=== PATIENT | male | born 1960 | race Caucasian/White ===

== ENCOUNTER → 2019-05-12 | Outpatient (CLI) | payer BC, SELFPAY ==
[2015-05-01 08:24] VITALS: BMI 37.6
[2019-05-12 11:01] LABS: International Normalized Ratio 2.6; Prothrombin Time (Protime)PT. 27.5 SECONDS (11.7-14.9)
== END | disposition home or self-care (01) ==
LOC: LABSPEC 10:44
PROVIDERS: Family Provider Family Medicine; PCP Family Medicine; Referring Provider Family Medicine; Visit Provider Family Medicine
DX: Z86.718 Personal history of other venous thrombosis and embolism (principal)
CPT/HCPCS: 36415; 85610

== ENCOUNTER → 2020-04-03 | Outpatient (CLI) | payer BC, SELFPAY ==
[2020-04-03 11:09] LABS: International Normalized Ratio 1.2; Prothrombin Time (Protime)PT. 14.7 SECONDS (11.7-14.9)
== END | disposition home or self-care (01) ==
LOC: LABSPEC 10:51
PROVIDERS: PCP Family Medicine; Referring Provider Family Medicine; Visit Provider Family Medicine
DX: Z86.718 Personal history of other venous thrombosis and embolism (principal)
CPT/HCPCS: 85610

== ENCOUNTER → 2020-04-08 | Outpatient (CLI) | payer BC, SELFPAY ==
[2020-04-08 12:37] LABS: International Normalized Ratio 1.8; Prothrombin Time (Protime)PT. 20.5 SECONDS (11.7-14.9)
== END | disposition home or self-care (01) ==
LOC: LABSPEC 08:46
PROVIDERS: PCP Family Medicine; Referring Provider Family Medicine; Visit Provider Family Medicine
DX: Z79.01 Long term (current) use of anticoagulants (principal); Z86.718 Personal history of other venous thrombosis and embolism
CPT/HCPCS: 85610

== ENCOUNTER → 2020-04-22 | Outpatient (CLI) | payer BC, SELFPAY ==
[2015-05-01 08:24] VITALS: BMI 37.6
[2020-04-22 10:23] LABS: International Normalized Ratio 3.4
== END | disposition home or self-care (01) ==
LOC: LABSPEC 10:06
PROVIDERS: PCP Family Medicine; Referring Provider Family Medicine; Visit Provider Family Medicine
DX: Z86.718 Personal history of other venous thrombosis and embolism (principal)
CPT/HCPCS: 85610

== ENCOUNTER → 2020-04-29 12:27 | Outpatient (CLI) | payer BC, SELFPAY ==
[2015-05-01 08:24] VITALS: BMI 37.6
[2020-04-29 12:58] LABS: International Normalized Ratio 2.7; Prothrombin Time (Protime)PT. 28.1 SECONDS (11.7-14.9)
== END ==
PROVIDERS: PCP Family Medicine; Referring Provider Family Medicine; Visit Provider Family Medicine
DX: Z86.718 Personal history of other venous thrombosis and embolism (principal)
CPT/HCPCS: 85610

== ENCOUNTER → 2020-07-04 08:39 | Outpatient (CLI) | payer BC, SELFPAY ==
[2015-05-01 08:24] VITALS: BMI 37.6
[2020-07-04 09:08] LABS: International Normalized Ratio 2.1; Prothrombin Time (Protime)PT. 22.7 SECONDS (11.7-14.9)
== END | disposition home or self-care (01) ==
LOC: LABSPEC 08:41
PROVIDERS: PCP Family Medicine; Visit Provider Family Medicine
CPT/HCPCS: 85610

== ENCOUNTER → 2020-08-07 17:39 | Outpatient (CLI) | payer BC, SELFPAY | PROVIDERS: PCP Family Medicine; Referring Provider Family Medicine; Visit Provider Family Medicine | DX: U07.1 COVID-19 (principal) | CPT/HCPCS: 87635; C9803; U0003 ==

== ENCOUNTER → 2020-09-12 | Outpatient (CLI) | payer BC, SELFPAY ==
[2015-05-01 08:24] VITALS: BMI 37.6
[2020-09-12 09:02] LABS: International Normalized Ratio 2.4; Prothrombin Time (Protime)PT. 25.8 SECONDS (11.7-14.9)
== END | disposition home or self-care (01) ==
LOC: LABSPEC 08:33
PROVIDERS: PCP Family Medicine; Visit Provider Family Medicine
DX: Z86.718 Personal history of other venous thrombosis and embolism (principal)
CPT/HCPCS: 85610

== ENCOUNTER → 2020-10-17 | Outpatient (CLI) | payer BC, SELFPAY ==
[2015-05-01 08:24] VITALS: BMI 37.6
[2020-10-17 10:29] LABS: Prothrombin Time (Protime)PT. 22.6 SECONDS (11.7-14.9)
== END | disposition home or self-care (01) ==
LOC: LABSPEC 10:06
PROVIDERS: PCP Family Medicine; Referring Provider Family Medicine; Visit Provider Family Medicine
DX: Z86.718 Personal history of other venous thrombosis and embolism (principal)
CPT/HCPCS: 85610

== ENCOUNTER → 2020-11-19 | Outpatient (CLI) | payer BC, SELFPAY ==
[2020-11-19 10:25] LABS: International Normalized Ratio 2.7; Prothrombin Time (Protime)PT. 28.4 SECONDS (11.7-14.9)
== END | disposition home or self-care (01) ==
LOC: LABSPEC 10:07
PROVIDERS: PCP Family Medicine; Referring Provider Family Medicine; Visit Provider Family Medicine
DX: Z86.718 Personal history of other venous thrombosis and embolism (principal)
CPT/HCPCS: 85610

== ENCOUNTER → 2021-01-23 | Outpatient (CLI) | payer BC, SELFPAY ==
[2021-01-23 09:39] LABS: International Normalized Ratio 2.6; Prothrombin Time (Protime)PT. 26.6 SECONDS (11.7-14.9)
== END | disposition home or self-care (01) ==
LOC: LABSPEC 09:22
PROVIDERS: PCP Family Medicine; Referring Provider Family Medicine; Visit Provider Family Medicine
DX: Z86.718 Personal history of other venous thrombosis and embolism (principal)
CPT/HCPCS: 85610

== ENCOUNTER → 2021-02-24 08:34 | Outpatient (CLI) | payer BC, SELFPAY ==
[2021-02-24 09:33] LABS: International Normalized Ratio 2.8
== END ==
PROVIDERS: PCP Family Medicine; Referring Provider Family Medicine; Visit Provider Family Medicine
DX: Z86.718 Personal history of other venous thrombosis and embolism (principal)
CPT/HCPCS: 85610

== ENCOUNTER → 2023-04-22 | Outpatient (CLI) | payer OTHER, SELFPAY ==
[2023-04-22 16:59] LABS: International Normalized Ratio 2.7; Prothrombin Time (Protime)PT. 29.1 SECONDS (11.7-14.9)
== END | disposition home or self-care (01) ==
PROVIDERS: PCP Internal Medicine; Referring Provider Physician Assistant; Visit Provider Physician Assistant
DX: Z79.01 Long term (current) use of anticoagulants (principal)
CPT/HCPCS: 85610

== ENCOUNTER 2023-05-27 15:00 | Emergency (ER) | payer OTHER, SELFPAY ==
[2023-05-27 15:01] VITALS: BP 147/59; PULSE 60; RESP 15; TEMP 36.4; O2SAT 97; BMI 38.7
--- NOTE | 2023-05-27 17:31 | RAD_ITS ---
INDICATION: Trauma EXAMINATION/TECHNIQUE: X-RAY - LEFT XR Shoulder Min 2 Views 4 VIEWS COMPARISON: FINDINGS: No acute fracture or dislocation. No destructive bone changes. Joint spaces are well-maintained. Normal alignment. Soft tissues are unremarkable. No radiopaque foreign body or soft tissue gas. RAD/Shoulder min 2 Views IMPRESSION: Negative. Electronically Signed: Yojana Mahmood MD at 18:54 EDT Reading Location ID and State: [id number] / Tel , Service support ,
--- NOTE | 2023-05-27 17:31 | CT_ITS ---
STUDY: CT BRAIN WITHOUT CONTRAST REASON FOR EXAM: Male, 63 years old. Trauma RADIATION DOSAGE (If Supplied By Facility): CTDIvol = ( 44.99 ) mGy, DLP = ( 931.09 ) mGycm TECHNIQUE: Transaxial CT imaging of the brain was performed without administration of intravenous contrast material. Individualized dose optimization techniques were used for this CT. COMPARISON: FINDINGS: Normal soft tissue structures. Normal calvarium. There is mild cerebral atrophy with widening of the extra-axial spaces and ventricular dilatation. There are areas of decreased attenuation within the white matter tracts of the supratentorial brain, consistent with microvascular disease changes. There is no intracranial hemorrhage. There are no findings of an acute ischemic infarction. Normal visualized paranasal sinuses. CT/Brain/Head without Contrast IMPRESSION: No acute findings. Microvascular ischemic changes. Atrophy. Electronically Signed: Yojana Mahmood MD at 18:12 EDT Reading Location ID and State: [id number] / Tel , Service support ,
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
--- NOTE | 2023-05-27 17:45 | CT_ITS ---
INDICATION: Trauma EXAMINATION: CT CERVICAL SPINE - CT Spine Cervical W/O Contrast Injection TECHNIQUE: Helically acquired images were obtained of the cervical spine. 2D reformatted images were reviewed. A radiation dose optimization technique was used for this scan. IV Contrast dosage and agent: None. RADIATION DOSAGE (If Supplied By Facility): CTDIvol = ( 31.05 ) mGy, DLP = ( 707.68 ) mGycm COMPARISON: FINDINGS: VERTEBRAE: No fracture or traumatic subluxation. No discrete lytic or blastic abnormality. Normal alignment. Normal craniocervical junction and cervicothoracic junction. DISCS and SPINAL CANAL: Disc heights are preserved. No critical stenosis. C4-5 left foraminal encroachment due to uncinate hypertrophy. NECK SOFT TISSUES: No prevertebral soft tissue swelling. There is no cervical adenopathy. Large multinodular thyroid, partially imaged. LUNG APICES: Clear. CT/Spine Cervical without Contras IMPRESSION: No acute cervical trauma. Electronically Signed: Yojana Mahmood MD at 18:26 EDT Reading Location ID and State: [id number] / Tel , Service support ,
--- NOTE | 2023-05-27 17:55 | RAD_ITS ---
INDICATION: Trauma EXAMINATION/TECHNIQUE: X-RAY - XR Ribs Unilateral W/ PA Chest Min 3 Views COMPARISON: FINDINGS: SOFT TISSUES: No soft tissue swelling or gas. BONES: No displaced fracture. No sclerotic or destructive changes observed. VISUALIZED LUNGS: Clear. No pneumothorax. RAD/Ribs Uni Min 3V w/PA Chest IMPRESSION: No evidence of displaced rib fracture. Electronically Signed: Yojana Mahmood MD at 18:56 EDT Reading Location ID and State: [id number] / Tel , Service support ,
[2023-05-27 19:01] VITALS: BP 139/79; PULSE 82; RESP 16; O2SAT 96
[2023-05-27 19:32] LABS: International Normalized Ratio 2.3; Prothrombin Time (Protime)PT. 25.8 SECONDS (11.7-14.9)
== END 2023-05-27 20:12 | disposition home or self-care (01) ==
PROVIDERS: Emergency Provider Emergency Medicine; PCP Internal Medicine; Visit Provider Emergency Medicine
DX: S16.1XXA Strain of muscle, fascia and tendon at neck level, initial encounter (principal); S29.009A Unspecified injury of muscle and tendon of unspecified wall of thorax, initial encounter; S40.012A Contusion of left shoulder, initial encounter; V84.0XXA Driver of special agricultural vehicle injured in traffic accident, initial encounter; Y92.410 Unspecified street and highway as the place of occurrence of the external cause
CPT/HCPCS: 70450; 71101; 72125; 73030; 85610; 99282

== ENCOUNTER → 2023-12-24 | Outpatient (CLI) | payer OTHER, SELFPAY ==
--- NOTE | 2023-12-24 10:48 | ECHOD_ITS ---
Reason For Study: SOB Procedure This was a 2D Doppler, Color Flow transthoracic echocardiogram. The study was technically difficult. Definity declined. Exam performed in department. Left Ventricle Normal LV size. Mild concentric left ventricular hypertrophy. The left ventricular ejection fraction is 65 %. No evidence for diastolic dysfunction. Septal motion consistent with bundle branch block. Right Ventricle Normal right ventricle. Atria The left and right atria are normal. Mitral Valve Mild mitral annular calcification. Tricuspid Valve Trivial tricuspid valve insufficiency. Unable to estimate RV systolic pressure due to insufficient tricuspid regurgitant envelope. Aortic Valve Trisinus/trileaflet aortic valve. Pulmonic Valve The pulmonic valve is not well visualized. Great Vessels Normal sized aortic root. Pericardium/Pleural No pericardial effusion. MMode/2D Measurements & Calculations LVIDd: 6.2 cm IVSd: 1.0 cm Ao root diam: 3.3 cm LVIDs: 5.4 cm LVPWd: 1.2 cm FS: 13.6 % LAV(MOD-bp): 63.4 ml LVAd ap4: 41.7 cm2 SV(MOD-sp4): 85.7 ml LAV(MOD-bp) Indexed: 27.2 ml/m2 LVLd ap4: 8.9 cm LAV(MOD-sp2): 68.7 ml EDV(MOD-sp4): 168.3 ml LAV(MOD-sp4): 54.3 ml EDV(sp4-el): 165.4 ml LVAs ap4: 25.9 cm2 LVLs ap4: 7.2 cm ESV(MOD-sp4): 82.6 ml ESV(sp4-el): 79.2 ml EF(MOD-sp4): 50.9 % EF(sp4-el): 52.2 % SV(sp4-el): 86.3 ml LA A4 area: 18.9 cm2 RA A4 area: 21.0 cm2 TAPSE: 2.4 cm Time Measurements MV dec time: 0.26 sec Doppler Measurements & Calculations MV E max arjun: 71.7 cm/sec Lat Peak E' Arjun: 12.7 cm/sec Med Peak E' Arjun: 9.0 cm/sec MV A max arjun: 75.1 cm/sec E/E' lat: 5.7 E/E' med: 8.0 MV E/A: 0.95 MV V2 max: 88.3 cm/sec MV dec slope: 282.8 cm/sec2 Ao V2 max: 135.3 cm/sec MV max P.1 mmHg Ao max P.3 mmHg MV V2 mean: 50.0 cm/sec Ao V2 mean: 85.6 cm/sec MV mean P.2 mmHg Ao mean P.5 mmHg MV V2 VTI: 41.1 cm Ao V2 VTI: 29.6 cm AV (velocity ratio): 0.94 LV V1 max: 117.2 cm/sec PA V2 max: 108.8 cm/sec LV V1 max P.5 mmHg LV V1 mean P.0 mmHg LV V1 mean: 79.4 cm/sec LV V1 VTI: 27.8 cm ECHO/Echo Complete Interpretation Summary The study was technically difficult. Mild concentric left ventricular hypertrophy. The left ventricular ejection fraction is 65 %. Mild mitral annular calcification. Ordering Physician: Oseas Hernandez V Referring Physician: Oseas Hernandez V Performed By: Leana Valdes RCS
== END | disposition home or self-care (01) ==
LOC: CVS 10:47
PROVIDERS: PCP Internal Medicine; Referring Provider Internal Medicine Pulmonary Disease; Visit Provider Internal Medicine Pulmonary Disease
DX: I10 Essential (primary) hypertension (principal); R06.02 Shortness of breath
CPT/HCPCS: 93306

== ENCOUNTER 2024-10-06 17:40 | Emergency (ER) | payer BC, SELFPAY ==
[2024-10-06 17:41] VITALS: BP 133/72; PULSE 44; RESP 18; TEMP 37.2; O2SAT 99; BMI 37.5
--- NOTE | 2024-10-06 17:49 | RAD_ITS ---
EXAM: XR CHEST, 2 VIEWS CLINICAL INDICATION: cough TECHNIQUE: Frontal and lateral views of the chest. COMPARISON: 06/27/2014 FINDINGS: LUNGS AND PLEURAL SPACES: Unremarkable. No consolidation or edema. No pneumothorax. No effusion. HEART: Unremarkable. Cardiac silhouette not enlarged. MEDIASTINUM: Central airways and mediastinal contour are unremarkable. BONES/JOINTS: Unremarkable. No acute fracture. SOFT TISSUES: Unremarkable. RAD/Chest PA and Lateral IMPRESSION: No radiographic evidence of acute cardiopulmonary disease. Electronically Signed: Ron Isabel MD at 18:13 EST ,
--- NOTE | 2024-10-06 17:58 | ED.RN ---
Patient transported to radiology
--- NOTE | 2024-10-06 18:00 | EDS_ITS ---
HPI <DAWNA Pittman - Last Filed: 10/06/24 20:59> History of Present Illness Chief Complaint: Chest Pain Narrative Narrative: 64-year-old male with PMH of HTN, HLD, DM2, DVT on Coumadin presents with several days of intermittent headache and midsternal chest tightness. He also had a slight cough. He was seen at urgent care 2 days ago and had a send out COVID/flu/RSV test. He states they called him today and said his swab was negative and that if he is still experiencing chest pain to be seen in the ED. Patient has had intermittent chest tightness lasting about 15 minutes several times throughout the day. It is mainly at rest and feels better if he stands up. He denies feeling short of breath. No nausea or vomiting or abdominal or back pain. He does not smoke. He has no personal cardiac history. He states his father had an IN at 61. PFSH <DAWNA Pittman - Last Filed: 10/06/24 20:59> [facility] Medical History Contact with and (suspected) exposure to other viral communicable diseases Home Medications ?Medication ?Instructions ?Recorded ?Last Taken ?Type Atenolol 25 mg PO DAILY 06/27/14 01/30/15 05:30 History 25 Metformin [Metformin Hcl] 1,000 mg PO BID 06/27/14 06/27/14 History lisinopril 20 1 tab PO DAILY 06/27/14 06/27/14 History mg-hydrochlorothiazide 12.5 mg tablet warfarin 4 mg tablet 4 mg PO SUTUWETHSA 06/27/14 06/27/14 History warfarin 5 mg tablet 5 mg PO MOFR 06/27/14 06/27/14 History aspirin 81 mg chewable tablet 81 mg PO DAILY@0800 01/29/15 Unknown History loratadine 10 mg tablet (Allergy 10 mg PO DAILY 01/29/15 Unknown History Relief (loratadine)) simvastatin 20 mg tablet 20 mg PO QHS 01/29/15 Unknown History Allergy/AdvReac Type Severity Reaction Status Date / Time No Known Allergies Allergy Verified 10/06/24 17:41 Social History Smoking Status: Never smoker ROS <DAWNA Pittman - Last Filed: 10/06/24 20:59> ROS ED ROS Narrative Constitutional: Negative for fever, chills, malaise. CVS: Positive for chest pain. Negative for palpitations,syncope. Respiratory: Positive for cough. Negative for shortness of breath, orthopnea. GI: Negative for abdominal pain, nausea, vomiting. EXAM <DAWNA Pittman - Last Filed: 10/06/24 20:59> Physical Exam Narrative Exam Narrative: CONST: Patient sitting in no acute distress. EYES: Normal inspection. NECK: Normal inspection. RESP: No respiratory distress, CTAB. CVS: Regular rate and rhythm, no murmur, no gallop. No chest wall tenderness. ABD: Soft and nontender, no guarding or rebound, nondistended, no hepatosplenomegaly. SKIN: Color normal, no rash, warm, dry, intact. EXTREMITIES: Normal appearance, no pedal edema. NEURO: Alert and answering questions appropriately. PSYCH: Normal affect. Const Vital Signs: 10/06/24 17:41 10/06/24 18:05 10/06/24 18:08 Temperature 98.9 F Temperature Source Oral Pulse Rate 44 L Respiratory Rate 18 Respiratory Effort Normal Blood Pressure 133/72 H Blood Pressure Mean 92 Pulse Ox 99 94 Oxygen Delivery Method Room Air Room Air 10/06/24 18:41 10/06/24 19:00 10/06/24 20:00 Temperature Temperature Source Pulse Rate 46 L 46 L 42 L Respiratory Rate 13 16 12 Respiratory Effort Blood Pressure Blood Pressure Mean Pulse Ox 94 94 97 Oxygen Delivery Method Room Air Room Air Room Air 10/06/24 20:53 Temperature 98.9 F Temperature Source Pulse Rate 42 L Respiratory Rate 12 Respiratory Effort Blood Pressure 133/72 H Blood Pressure Mean 92 Pulse Ox 97 Oxygen Delivery Method <Dr. Hill Lopez DO - Last Filed: 10/08/24 14:44> Physical Exam Const Vital Signs: 10/06/24 17:41 10/06/24 18:05 10/06/24 18:08 Temperature 98.9 F Temperature Source Oral Pulse Rate 44 L Respiratory Rate 18 Respiratory Effort Normal Blood Pressure 133/72 H Blood Pressure Mean 92 Pulse Ox 99 94 Oxygen Delivery Method Room Air Room Air 10/06/24 18:41 10/06/24 19:00 10/06/24 20:00 Temperature Temperature Source Pulse Rate 46 L 46 L 42 L Respiratory Rate 13 16 12 Respiratory Effort Blood Pressure Blood Pressure Mean Pulse Ox 94 94 97 Oxygen Delivery Method Room Air Room Air Room Air 10/06/24 20:53 Temperature 98.9 F Temperature Source Pulse Rate 42 L Respiratory Rate 12 Respiratory Effort Blood Pressure 133/72 H Blood Pressure Mean 92 Pulse Ox 97 Oxygen Delivery Method <DAWNA Pittman - Last Filed: 10/06/24 20:59> Heart Score History: Slightly/Non-Suspicious ECG: Normal Age: >45 - <65 years Risk Factors: >/= 3 Risk Factors or History of CAD Troponin: </= Normal Limit Score: 3 <Dr. Hill Lopez DO - Last Filed: 10/08/24 14:44> Heart Score Score: 3 MDM <DAWNA Pittman - Last Filed: 10/06/24 20:59> MDM MDM Narrative Medical decision making narrative: History gathered from: Patient and family member Differential includes viral illness, pneumonia, ACS 64-year-old male was evaluated for a few days of intermittent headache and midsternal chest tightness and slight cough. He appears well and nontoxic. He is hemodynamically stable. He is in sinus bradycardia from the mid 40s to 60s which is likely from his atenolol. He is not symptomatic. Overall his exam is unremarkable. CBC is WNL, BMP shows stable chronic kidney disease with creatinine of 1.39. Normal electrolytes. EKG is nonischemic and serial troponins are 6, 5. INR is therapeutic at 2.6 so I am not concerned for pulmonary embolus as the cause of his symptoms. Patient's pain is very atypical, his heart score is 3 and I do not suspect cardiac etiology. I feel he can be discharged and follow-up with his primary care doctor. Lab Data Attestation: I reviewed the patient's lab results. Labs: Laboratory Results - last 24 hr 10/06/24 10/06/24 18:20 20:21 WBC 7.3 RBC 4.59 L Hgb 13.1 Hct 40.7 MCV 88.7 MCH 28.5 MCHC 32.2 RDW Std Deviation 45.5 H RDW Coeff of Lisa 14.1 Plt Count 144 L MPV 10.2 Immature Gran % (Auto) 0.700 Neut % (Auto) 57.5 Lymph % (Auto) 27.0 [place] % (Auto) 9.7 Eos % (Auto) 4.1 Baso % (Auto) 1.0 Absolute Neuts (auto) 4.2 Absolute Lymphs (auto) 1.98 Nucleated RBC % 0 PT 28.7 H INR 2.6 Sodium 138 Potassium 4.3 Chloride 106 Carbon Dioxide 26.0 Anion Gap 6 BUN 38 H Creatinine 1.39 H Estim Creat Clear Calc 70.27 Est GFR (MDRD) Af Amer 66 Est GFR (MDRD) Non-Af 55 L BUN/Creatinine Ratio 27.3 H Glucose 111 H Calcium 9.7 Troponin I High Sens 6 5 Radiography Diagnostic Testing: Clinical Impression(s) from Imaging Studies Chest X-Ray 10/06/24 17:49 IMPRESSION: No radiographic evidence of acute cardiopulmonary disease. Electronically Signed: Ron Isabel MD at 18:13 EST , EKG Initial EKG: Attestation: I personally reviewed and interpreted this EKG as follows: Interpretation: No Acute Injury Pattern and Sinus Bradycardia Comments: Sinus bradycardia 45 bpm Normal intervals, no acute ischemic changes <Dr. Hill Lopez, DO - Last Filed: 10/08/24 14:44> [facility] MDM Narrative Medical decision making narrative: History gathered from: Patient and family member Differential includes viral illness, pneumonia, ACS 64-year-old male was evaluated for a few days of intermittent headache and midsternal chest tightness and slight cough. He appears well and nontoxic. He is hemodynamically stable. He is in sinus bradycardia from the mid 40s to 60s which is likely from his atenolol. He is not symptomatic. Overall his exam is unremarkable. CBC is WNL, BMP shows stable chronic kidney disease with creatinine of 1.39. Normal electrolytes. EKG is nonischemic and serial troponins are 6, 5. INR is therapeutic at 2.6 so I am not concerned for pulmonary embolus as the cause of his symptoms. Patient's pain is very atypical, his heart score is 3 and I do not suspect cardiac etiology. I feel he can be discharged and follow-up with his primary care doctor. Supervisory Physician Note Patient was seen and examined with the Advanced Practice Provider. Nursing notes and vital signs have been reviewed. Pertinent old records have been reviewed. I agree with the essential elements of the ESME's history, physical exam, assessment, and plan. The differential diagnosis and management options were discussed with the ESME. I participated in determining and agree with the management, procedures, final impression and disposition as documented. See changes noted by me. Please see addendum or separate note for any additional details. Lab Data Labs: Laboratory Results - last 24 hr 10/06/24 10/06/24 18:20 20:21 WBC 7.3 RBC 4.59 L Hgb 13.1 Hct 40.7 MCV 88.7 MCH 28.5 MCHC 32.2 RDW Std Deviation 45.5 H RDW Coeff of Lisa 14.1 Plt Count 144 L MPV 10.2 Immature Gran % (Auto) 0.700 Neut % (Auto) 57.5 Lymph % (Auto) 27.0 [place] % (Auto) 9.7 Eos % (Auto) 4.1 Baso % (Auto) 1.0 Absolute Neuts (auto) 4.2 Absolute Lymphs (auto) 1.98 Nucleated RBC % 0 PT 28.7 H INR 2.6 Sodium 138 Potassium 4.3 Chloride 106 Carbon Dioxide 26.0 Anion Gap 6 BUN 38 H Creatinine 1.39 H Estim Creat Clear Calc 70.27 Est GFR (MDRD) Af Amer 66 Est GFR (MDRD) Non-Af 55 L BUN/Creatinine Ratio 27.3 H Glucose 111 H Calcium 9.7 Troponin I High Sens 6 5 Radiography Diagnostic Testing: Clinical Impression(s) from Imaging Studies Chest X-Ray 10/06/24 17:49 IMPRESSION: No radiographic evidence of acute cardiopulmonary disease. Electronically Signed: Ron Isabel MD at 18:13 EST , Discharge Plan Triage Chief Complaint: Chest Pain Other Complaint: Headache ED Midlevel Provider: Jessika Duran ED Provider: Hill Lopez Dx/Rx/DC Orders Clinical Impression: Atypical chest pain, Sinus bradycardia Instructions: ED Chest Pain, Uncertain Cause Prescriptions: No Action Atenolol 25 MG tablet 25 mg PO DAILY Patient Comments: blood pressure/heart lisinopril-hydrochlorothiazide 1 EACH tablet 1 tab PO DAILY Patient Comments: blood pressure warfarin 4 MG tablet 4 mg PO SUTUWETHSA Patient Comments: 4MG , WED, TH, SAT, SUN warfarin 5 MG tablet 5 mg PO MOFR Patient Comments: 5MG ON WEDNESDAY AND WEDNESDAY Metformin [Metformin Hcl] 1,000 MG tablet 1,000 mg PO BID Patient Comments: diabetes simvastatin 20 MG tablet 20 mg PO QHS aspirin 81 MG tablet,chewable 81 mg PO DAILY@0800 loratadine [Allergy Relief (loratadine)] 10 MG tablet 10 mg PO DAILY Primary Care Provider: Kimberly Cat Referrals: Kimberly Cat MD [Primary Care Provider] - Activity Restrictions/Additional Instructions: Your screening tests today are normal. There are no signs of heart damage and this pain is unlikely to be heart related. Your INR is in the appropriate range at 2.6. I recommend you follow-up with your primary care doctor. Print Language: [place] Disposition Disposition: Home, Self Care Discharge Date/Time: 10/06/24 20:57
[2024-10-06] MEDS: Aspirin 81 MG TAB.CHEW 324 MG PO (18:04)
[2024-10-06 18:05] VITALS: O2SAT 94
[2024-10-06 18:27] LABS: Absolute Lymphocyte Count 1.98 X10^3/uL (0.83-4.51); Absolute Neutrophil Count 4.2 X10^3/uL (2.0-7.7); Basophil# 0.07 X10^3/uL; Eosinophils% 4.1 % (0-5); Hematocrit 40.7 % (40-54); Hemoglobin 13.1 g/dL (13.0-16.5); Lymphocyte # 1.98 X10^3/ul (0.83-4.51); Mean Corp Hgb Conc 32.2 g/dL (32-36); Mean Corpuscular Hgb 28.5 pg (27.0-32.0); Mean Corpuscular Volume 88.7 fL (80-94); Mean Platelet Vol. 10.2 fl (6.2-12.0); Monocyte# 0.71 X10^3/uL; Monocyte% 9.7 % (0-10); NRBC Flagged by Analyzer 0 % (0-5); Neutrophil # 4.23 X10^3/uL (2.7-7.7); Neutrophil % 57.5 % (47-70); Platelet Count 144 K/mm3 (150-450); RBC Distribution Width CV 14.1 % (11.6-14.6); RBC Distribution Width SD 45.5 fl (35.1-43.9); Red Blood Count 4.59 M/mm3 (4.6-6.2); White Blood Count 7.3 K/mm3 (4.4-11.0)
[2024-10-06 18:41] VITALS: PULSE 46; RESP 13; O2SAT 94
[2024-10-06 18:45] LABS: Anion Gap 6 (5-15); BUN 38 mg/dL (7-18); BUN/Creat Ratio 27.3 RATIO (10-20); Calcium,Total 9.7 mg/dL (8.5-10.1); Chloride 106 mmol/L (98-107); Creatinine, Serum 1.39 mg/dL (0.70-1.30); EST Glomerular Filtration Rate 55 mL/min (>60); Est Glom Filt Rate - Afr Amer 66 mL/min (>60); Estimated Creatinine Clearance 70.27 ml/min; Glucose 111 mg/dL (74-106); Potassium 4.3 mmol/L (3.5-5.1); Sodium Level 138 mmol/L (136-145); Troponin-I HS (w/2H Reflex) 6 pg/mL (3.0-78.0)
[2024-10-06 19:00] VITALS: PULSE 46; RESP 16; O2SAT 94
[2024-10-06 19:08] LABS: International Normalized Ratio 2.6; Prothrombin Time (Protime)PT. 28.7 SECONDS (11.7-14.9)
[2024-10-06 20:00] VITALS: PULSE 42; RESP 12; O2SAT 97
[2024-10-06 20:23] LABS: Reflex Troponin-HS? (from REC) Y
[2024-10-06 20:44] LABS: Troponin-I HS 5 pg/mL (3.0-78.0)
[2024-10-06 20:53] VITALS: BP 133/72; PULSE 42; RESP 12; TEMP 37.2; O2SAT 97
== END 2024-10-06 20:57 | disposition home or self-care (01) ==
PROVIDERS: Physician Assistant; Emergency Provider Surgery; PCP Internal Medicine; Visit Provider Surgery
DX: R07.89 Other chest pain (principal); E11.22 Type 2 diabetes mellitus with diabetic chronic kidney disease; R00.1 Bradycardia, unspecified; R51.9 Headache, unspecified; I12.9 Hypertensive chronic kidney disease with stage 1 through stage 4 chronic kidney disease, or unspecified chronic kidney disease; N18.9 Chronic kidney disease, unspecified; E78.5 Hyperlipidemia, unspecified; Z86.718 Personal history of other venous thrombosis and embolism; Z79.01 Long term (current) use of anticoagulants
CPT/HCPCS: 71046; 80048; 84484; 85025; 85610; 93005; 99285; A4216